=== PATIENT | male | born 1970 | race African-American/Black ===

== ENCOUNTER 2025-10-04 10:06 | Outpatient (CLI) | payer MEDICARE | END 2025-10-04 10:07 | disposition home or self-care (01) | LOC: PET 10:06 | PROVIDERS: ATTEND Internal Medicine Hematology & Oncology | DX: C20 Malignant neoplasm of rectum (principal); J84.89 Other specified interstitial pulmonary diseases | CPT/HCPCS: 78815; A9552 ==